=== PATIENT | female | born 1975 | race Caucasian/White ===

== ENCOUNTER 2018-02-05 20:34 | Emergency (ER) | payer OTHER ==
[2018-02-05 20:41] VITALS: BP 149/81; PULSE 90; TEMP 98; BMI 38.0
[2018-02-05] MEDS ORDERED: DIPHTH,PERTUSS(ACELL),TET 0.5 ML DISP.SYRIN IM ONE (21:05)
--- NOTE | 2018-02-05 21:06 | PDOC ---
History of Present Illness - General Chief Complaint: Laceration Stated Complaint: LACERATION Time Seen by Provider: 02/05/18 20:41 History Source: Patient Exam Limitations: No Limitations - History of Present Illness Initial Comments: 02/05/18 21:01 HISTORY OF PRESENT ILLNESS: 43-year-old woman past medical history of IDDM on insulin pump and SLE who presents for evaluation of laceration sustained to her right third finger while attempting to carve a turkey tonight. Patient states the injury happened at approximately 5:00 and a neighbor of hers is an EMT who put a sterile dressing on her wound. Bleeding is currently controlled. Patient is unsure of her last tetanus shot. Pt is right hand dominant. No recent travel or sick contacts. PAST MEDICAL HISTORY:see hpi SURGICAL HISTORY: Denies ALLERGIES: No known drug allergies REVIEW OF SYSTEMS General/Constitutional: Denies fever or chills. Denies weakness, weight change. HEENT: Denies change in vision. Denies ear pain or discharge. Denies sore throat. Cardiovascular: Denies chest pain or shortness of breath. Respiratory: Denies cough, wheezing, or hemoptysis. Gastrointestinal: Denies nausea, vomiting, diarrhea or constipation. Denies rectal bleeding. Genitourinary: Denies dysuria, frequency, or change in urination. Musculoskeletal: Denies joint or muscle swelling or pain. Denies neck or back pain. Skin and breasts: Laceration to right 3rd finger. Neurologic: Denies headache, vertigo, loss of consciousness, or loss of sensation. Psychiatric: Denies depression or anxiety. Endocrine: Denies increased thirst. Denies abnormal weight change. Hematologic/Lymphatic: Denies anemia, easy bleeding, or history of blood clots. Allergic/Immunologic: Denies hives or skin allergy. Denies latex allergy. PHYSICAL EXAM General Appearance: Well-appearing, appropriately dressed. No apparent distress , no intoxication. HEENT: EOMI, PERRLA, normal ENT inspection, normal voice, TMs normal, pharynx normal. No conjunctival pallor. No photophobia, scleral icterus. Neck: Supple. Trachea midline. No tenderness, rigidity, carotid bruit, stridor , lymphadenopathy, or thyromegaly. Respiratory/Chest: Lungs CTAB. No shortness of breath, chest tenderness, respiratory distress, accessory muscle use. No crackles, rales, rhonchi, stridor , wheezing, dullness Cardiovascular: RRR. S1, S2. No JVD, murmur, bradycardia, tachycardia. Vascular Pulses: Dorsalis-Pedis (R): 2+, Dorsalis-Pedis (L): 2+ Gastrointestinal/Abdominal: Normal bowel sounds. Abdomen soft, non-distended. No tenderness or rebound tenderness. No organomegaly, pulsatile mass, guarding, hernia, hepatomegaly, splenomegaly. Lymphatic: No adenopathy, tenderness. Musculoskeletal/Extremities: Normal inspection. FROM of all extremities, normal capillary refill. Pelvis Stable. No CVA tenderness. No tenderness to extremities, pedal edema, swelling, erythema or deformity. Integumentary: Approximate 2 cm curved superficial laceration present to the distal volar aspect of the third digit of the right hand. 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 Fully oriented, alert. Appropriate mood/affect. Motor strength 5/5. No appreciable EOM palsy, facial droop or sensory deficit. Past History - Past Medical History Allergies/Adverse Reactions: Allergies Allergy/AdvReac Type Severity Reaction Status Date / Time No Known Allergies Allergy Verified 02/05/18 20:41 Home Medications: Ambulatory Orders Hydroxychloroquine So4 [Plaquenil -] 200 mg PO DAILY 02/05/18 Insulin (LOG) Aspart [NovoLOG -] 0 unit SQ DAILY 02/05/18 Losartan Potassium [Cozaar -] 50 mg PO DAILY 02/05/18 Metformin HCl [Glucophage] 1,000 mg PO ASDIR 02/05/18 Mycophenolate Mofetil [Cellcept -] 250 mg PO BID 02/05/18 COPD: No Diabetes: Yes Other medical history: LUPUS - Suicide/Smoking/Psychosocial Hx Smoking Status: No Smoking History: Never smoked Number of Cigarettes Smoked Daily: 0 *Physical Exam - Vital Signs Last Vital Signs Temp Pulse Resp BP Pulse Ox 98 F 90 18 149/81 98 02/05/18 20:38 02/05/18 20:38 02/05/18 20:38 02/05/18 20:38 02/05/18 20:38 Procedures - Consent Consent obtained: Verbal, From Patient - Laceration/Wound Repair Right Volar Finger 3rd digit Wound Length: to 2.5 cm Wound Explored: clean Wound's Depth, Shape: superficial Irrigated w/ Saline: Yes Betadine Prep: No Wound Debrided: minimal Wound Repaired With: Dermabond Layer Closure: No Sterile Dressing Applied: No Splint Applied: No Sling Applied: No Progress: 02/05/18 21:06 pt tolerated well Medical Decision Making - Medical Decision Making 02/05/18 21:07 A/P: 43-year-old woman with lupus and IDDM with superficial laceration to third digit of the right hand Approximate 2 cm curved superficial laceration present to the distal volar aspect of the third digit of the right hand Bleeding is well-controlled Boostrix, Dermabond-see procedure note for details, discharge *DC/Admit/Observation/Transfer Diagnosis at time of Disposition: Laceration - Discharge Dispostion Disposition: HOME Condition at time of disposition: Stable Decision to Admit order: No - Referrals - Patient Instructions Printed Discharge Instructions: DI for Laceration Repair Additional Instructions: Rest, no strenuous activity or exercise until glue is dissolved or lifted Avoid hot steamy environment until Dermabond is gone No bathing or swimming until Dermabond is dissolved Avoid peeling away as wound will open Dermabond should be resolved within 3-7 days May use Tylenol or Motrin for pain relief Followup with your doctor as needed Return to emergency department for worsening swelling, pain, redness or signs of cellulitis If the wound reopens, may not be reclosed as will be a dirty wound and will need to heal by secondary intention - Post Discharge Activity
== END 2018-02-05 21:20 | disposition home or self-care (01) ==
LOC: JERFT 20:34
PROC: 0HQFXZZ Repair Right Hand Skin, External Approach (ICD-10-PCS; principal; 2018-02-05)
PROC: 3E0234Z Introduction of Serum, Toxoid and Vaccine into Muscle, Percutaneous Approach (ICD-10-PCS; 2018-02-05)
DX: S61.212A Laceration without foreign body of right middle finger without damage to nail, initial encounter (principal); W26.0XXA Contact with knife, initial encounter; Y93.G1 Activity, food preparation and clean up; Y92.018 Other place in single-family (private) house as the place of occurrence of the external cause; Y99.8 Other external cause status
CPT/HCPCS: 90715; 99281-25

== ENCOUNTER 2022-07-23 05:46 | Emergency (ER) | payer SELFPAY ==
[2022-07-23 05:53] VITALS: BMI 29.2
[2022-07-23] MEDS ORDERED: MECLIZINE HCL 25 MG TABLET (FP) PO ONE (07:46)
[2022-07-23] MEDS ORDERED: METOCLOPRAMIDE HCL INJECTION 10 MG/2 ML VIAL IVPB ONE (07:48)
[2022-07-23] MEDS ORDERED: SODIUM CHLORIDE 0.9% 500 ML INFUS.BAG IV ONE (07:48)
[2022-07-23] MEDS ORDERED: MECLIZINE HCL 25 MG TABLET (FP) ONE ×2 (08:09→08:10)
[2022-07-23] MEDS ORDERED: METOCLOPRAMIDE HCL INJECTION 10 MG/2 ML VIAL ONE (08:09)
[2022-07-23 08:34] LABS: INR 0.9 (0.83-1.09); PROTHROMBIN TIME (PATIENT) 10.5 SEC (9.7-13.0)
[2022-07-23 08:35] LABS: BASO % 2.6 % (0-2.0); EOS % 3.2 % (0-4.5); HEMATOCRIT 35.9 % (32.4-45.2); HEMOGLOBIN 11.3 GM/dL (10.7-15.3); LYMPH % 22.4 % (8-40); MCH 22.9 pg (25.7-33.7); MCHC 31.6 g/dl (32.0-36.0); MEAN CELL VOLUME 72.5 fl (80-96); MEAN PLT VOLUME 9.9 fl (7.5-11.1); MONO % 6.2 % (3.8-10.2); NEUT % 65.6 % (42.8-82.8); PLATELET COUNT 328 10^3/uL (134-434); RBC 4.96 M/mm3 (3.60-5.2); RDW 17.7 % (11.6-15.6); WHITE BLOOD COUNT 6.4 K/mm3 (4.0-10.0)
[2022-07-23 08:37] LABS: ACTIVATED PTT 28.7 SECONDS (25.2-36.5)
[2022-07-23 08:40] LABS: VENOUS BASE EXCESS 2.2 mmol/L (-2-2); VENOUS O2 SATURATION 52.8 % (70-80); VENOUS PCO2 49.9 mmHg (38-52); VENOUS PH 7.37 (7.310-7.410)
[2022-07-23 08:48] LABS: POTASSIUM 3.9 mmol/L (3.5-5.1)
[2022-07-23 08:51] LABS: BLOOD UREA NITROGEN 11.1 mg/dL (7-18); MAGNESIUM 1.6 mg/dL (1.8-2.4)
[2022-07-23 08:52] LABS: ALBUMIN 3.6 g/dl (3.4-5.0)
[2022-07-23 08:54] LABS: CREATININE 0.6 mg/dL (0.55-1.3)
[2022-07-23 08:56] LABS: BILIRUBIN,TOTAL 0.3 mg/dL (0.2-1); TOT PROT 7.6 g/dl (6.4-8.2)
[2022-07-23] MEDS ORDERED: MAGNESIUM SULF 50% (8.12 MEQ/2 ML-1 GM VIAL) IVPB ONE (09:34)
[2022-07-23] MEDS ORDERED: MAGNESIUM SULFATE IN WATER 2 GM/50 ML IVPB IVPB ONE (09:40)
[2022-07-23 13:37] VITALS: TEMP 98.1
[2022-07-23 14:51] VITALS: BP 115/75; PULSE 116; RESP 20
== END 2022-07-23 15:22 | disposition home or self-care (01) ==
LOC: JER 05:46
PROC: 3E033GC Introduction of Other Therapeutic Substance into Peripheral Vein, Percutaneous Approach (ICD-10-PCS; principal; 2022-07-23)
PROC: 3E033GC Introduction of Other Therapeutic Substance into Peripheral Vein, Percutaneous Approach (ICD-10-PCS; 2022-07-23)
DX: R53.1 Weakness (principal); R42 Dizziness and giddiness; Z20.822 Contact with and (suspected) exposure to COVID-19
CPT/HCPCS: 0241U-QW; 36415; 70450-TC; 70496-TC; 70498-TC; 70551-TC; 71045-TC-FY; 80053; 82728; 82803; 82962; 83540; 83550; 83735; 84439; 84443; 84484; 84703; 85025; 85610; 85730; 86850; 86900; 86901; 93005; 93010; 99285-25; Q9967